=== PATIENT | female | born 1940 | race Caucasian/White ===

== ENCOUNTER 2024-09-22 11:40 | Emergency (ER) | payer OTHER ==
[~2024-09-22] VITALS: Ht 157.5 cm; Wt 122.5 kg
[~2024-09-22 11:40] MED LIST: Aspir 8181 MG PO; CENTRUM SILVER1 EAC2 PO; DOXYLAMINE-PYR1 EAC1 PO; FURO20 PO; FURO40 PO; GABA100 PO; LEVSOD75 PO; MAGNESIUM OXID500 MG PO; METO25 PO; POTA8 PO; POTCHL20ER PO
[2024-09-22 12:27] LABS: BASOPHILS ABSOLUTE AUTO 0.04 K/mm3 (0.00-0.23); BASOPHILS PERCENT AUTO 0 % (0-2); EOSINOPHILS ABSOLUTE AUTO 0.03 K/mm3 (0.00-0.68); EOSINOPHILS PERCENT AUTO 0 % (0-6); Hematocrit 34.9 % (33.0-51.0); Hemoglobin 11.4 g/dL (11.5-16.0); IMMATURE GRAN ABSOLUTE AUTO 0.05 K/mm3 (0.00-0.10); IMMATURE GRAN PERCENT AUTO 0 % (0-1); LYMPHOCYTES ABSOLUTE AUTO 0.74 K/mm3 (0.84-5.20); LYMPHOCYTES PERCENT AUTO 6 % (21-46); MONOCYTES ABSOLUTE AUTO 0.42 K/mm3 (0.16-1.47); MONOCYTES PERCENT AUTO 4 % (4-13); Mean Corpuscular HGB Conc 32.7 g/dL (31.5-36.5); Mean Corpuscular Volume 101 fL (80-100); Mean Platelet Volume 9.4 fL (9.1-12.4); NEUTROPHILS ABSOLUTE AUTO 10.22 K/mm3 (1.96-9.15); NEUTROPHILS PERCENT AUTO 89 % (41-73); Platelet Count 261 K/mm3 (150-400); RDW Coefficient Variation 17.5 % (11.7-14.2); RDW Standard Deviation 65.2 fL (35.1-46.3); Red Blood Cell Count 3.45 M/mm3 (3.80-5.20)
[2024-09-22 12:52] LABS: Albumin, Blood 2.9 g/dL (3.4-5.0); Albumin/Globulin Ratio 0.6 (0.8-1.8); Bilirubin, Total 0.7 mg/dL (0.1-1.0); Bun/Creatinine Ratio 17.5 (12.0-20.0); Calcium, Blood 9.8 mg/dL (8.5-10.1); Creatinine, Blood 2.34 mg/dL (0.40-1.00); Globulin, Blood 4.5 g/dL (2.2-4.0); Potassium, Blood 4.3 mmol/L (3.5-5.5); Total Protein, Blood 7.4 g/dL (6.4-8.2)
[2024-09-22] MEDS ORDERED: Ondansetron HCl 2 MG / ML 2ML Vial IV ONE (14:45)
[2024-09-22] MEDS ORDERED: Morphine Sulfate 4 MG/1 ML Injection IV ONE (14:45)
[2024-09-22] MEDS ORDERED: BUMETANIDE2 M6 PO (15:09)
[2024-09-22] MEDS ORDERED: CALCITRIOL0.25 MC4 PO (15:10)
[2024-09-22] MEDS ORDERED: Lactulose 200 GM/300 ML Enema 300ML BTL PR ONE (16:05)
[2024-09-22 19:26] LABS: Source, Urine Clean Catch
[2024-09-22 19:50] LABS: Appearance, Urine Clear (Clear); Bilirubin, Urine Neg (Neg); Blood, Urine Neg (Neg); Color, Urine Yellow (P-Yellow); Glucose Qualitative, Urine Neg (Neg); Ketones, Urine Neg (Neg); Leukocyte Esterase, Urine Neg (Neg); Nitrite, Urine Neg (Neg); Protein, Urine Neg (Neg); Specific Gravity, Urine 1.015 (1.003-1.022); Urobilinogen, Urine NORM (Normal)
[2024-09-22] MEDS ORDERED: LEVOTHYROXINE75 MC9 PO (20:18)
== END 2024-09-22 20:48 | disposition home or self-care (01) ==
LOC: ER 11:40
PROVIDERS: Physician Assistant
DX: K59.00 Constipation, unspecified (principal); Z79.82 Long term (current) use of aspirin; Z79.899 Other long term (current) drug therapy
CPT/HCPCS: 74176; 80053; 81003; 83690; 85025; 96374; 96375; 99284-25; A9270; J2270; J2405

== ENCOUNTER → 2025-08-11 | Outpatient (CLI) | payer OTHER ==
[~2025-08-11] MED LIST changes: +BUMETANIDE2 M6 PO; +CALCITRIOL0.25 MC4 PO; +LEVOTHYROXINE75 MC9 PO
[2025-08-13 10:33] LABS: Creatinine, Urine Random 54.4 mg/dL (27.00-270.00); Microalb/Creat Ratio UR, Rand 10.735 mg/g (0.000-30.000); Microalbumin, Random Urine 5.84 mg/L (0.000-20.000)
== END ==
LOC: LAB SHORT 22:10 → LAB 22:10
DX: R80.9 Proteinuria, unspecified (principal); E55.9 Vitamin D deficiency, unspecified; N18.4 Chronic kidney disease, stage 4 (severe); D63.1 Anemia in chronic kidney disease
CPT/HCPCS: 82043; 82570

== ENCOUNTER → 2025-08-13 | Outpatient (CLI) | payer OTHER ==
[2025-08-13 10:33] LABS: Protein, Urine Quantitative 9.0 mg/dL (0.0-11.9)
[2025-08-13 10:44] LABS: Microalbumin, Urine Quant. <5.000 mg/L (0.000-20.000)
== END | disposition home or self-care (01) ==
LOC: LAB 08:17 → LAB SHORT 08:17
PROVIDERS: Internal Medicine Nephrology
DX: N18.4 Chronic kidney disease, stage 4 (severe) (principal); D63.1 Anemia in chronic kidney disease; N25.81 Secondary hyperparathyroidism of renal origin; E55.9 Vitamin D deficiency, unspecified; E03.9 Hypothyroidism, unspecified; M35.9 Systemic involvement of connective tissue, unspecified; E85.9 Amyloidosis, unspecified; D51.8 Other vitamin B12 deficiency anemias; D52.8 Other folate deficiency anemias; D50.8 Other iron deficiency anemias; R80.9 Proteinuria, unspecified; G60.9 Hereditary and idiopathic neuropathy, unspecified; R94.5 Abnormal results of liver function studies; R94.6 Abnormal results of thyroid function studies; R76.9 Abnormal immunological finding in serum, unspecified
CPT/HCPCS: 81050; 82043; 82570; 84156